=== PATIENT | male | born 1940 | race Caucasian/White ===

== ENCOUNTER → 2017-08-30 | Outpatient (CLI) | payer OTHER, MEDICARE ==
[~2017-08-30] VITALS: Ht 172.7 cm; Wt 127.0 kg
[~2017-08-30] MED LIST: CHILDREN'S ASPI81 M1 PO; DIOVAN160 MG PO; LIPITOR 20 MG T20 M1 PO; VITAMIN D35000 UNIT PO
--- NOTE | ~2017-08-30 | S ---
[facility] [place] [address] SURGICAL PATH RPT PROCEDURE Name: NELIDA MARROQUIN Room #: REG [facility].#: [id number] Admission: 08/30/17 Date of : 36 Discharge: Report #: [id number] Path Case #: [id number] PATHOLOGY REPORT COLLECTION DATE: 08/30/2017 RECEIVED DATE: 08/30/2017 SUBMITTING PHYS: Dr. Cortez Sesay OTHER PHYS: Dr. Edy Dinh SPECIMEN(S) RECEIVED: A.Polyp @ cecum B.Polyp @ hepatic flexure x2 * * * * * * * * * * * * FINAL DIAGNOSIS: A. "Polyp at cecum", biopsy: - Tubular adenoma; no high-grade dysplasia. B. "Polyp at hepatic flexure x2", biopsy: - Tubular adenoma; no high-grade dysplasia. - Hyperplastic polyp. (CLW:israel; 08/31/2017) PATHOLOGIST: Bobbi Noguera M.D. REPORT ELECTRONICALLY SIGNED BY: Bobbi Noguera M.D. DATE/TIME: 08/31/2017 17:27 * * * * * * * * * * * * GROSS PATHOLOGY: A. Received in formalin labeled "Nelida Marroquin, polyp at cecum," is a segment of lorenzana soft tissue measuring 0.5 x 0.2 x 0.1 cm in maximum dimension. The specimen is submitted entirely in cassette A1. B. Received in formalin labeled, "Nelida Marroquin, polyp at hepatic flexure 2," are 3 fragments of lorenzana soft tissue measuring between 0.2 x 0.1 x 0.1 cm and 0.4 x 0.3 x 0.2 cm. They are entirely submitted in cassette B1. (SDY; 08/30/2017) CLINICAL HISTORY: History polyps Polyps, diverticulosis INITIAL CPT CODE(S): A; 86581 B; 90686 Professional services performed by [facility] at [facility] [address] [place] [address] SURGICAL PATH RPT PROCEDURE Name: NELIDA MARROQUIN Room #: [facility].#: [id number] Admission: 08/30/17 Date of : 36 Discharge: Report #: [id number] Path Case #: [id number] , [place] [address] Technical services performed by [facility] at [address] [place] [address], [facility] [address] [address]. [facility] [address] [place] [address] PHONE: [phone] DIRECTOR: Ever Fang M.D. * * * END OF REPORT * * *
--- NOTE | ~2017-08-30 | P ---
[facility] [place] [address] PROCEDURE REPORT Name: NELIDA PARIKH Room #: REG [facility]#: [id number] Admission: 08/30/17 Attend Phys: Cortez Sesay MD Discharge: Date of : 36 Report #: [id number] THIS REPORT FOR: //name// CC: Cortez Dinh MD OUTPATIENT COLONOSCOPY REPORT BRIEF HISTORY: The patient is a 76-year-old man with a history of colon polyp. Last colon exam was 5 years ago. PREOPERATIVE DIAGNOSES: High risk screening colonoscopy, history of colon polyp. POSTOPERATIVE DIAGNOSES: 1. Three colon polyps. 2. Severe diverticulosis coli, right and left colon. MEDICATIONS: Deep sedation with propofol per anesthesia. SPECIMENS: 1. Cecal polyp. 2. Polyps x 2, hepatic flexure. ESTIMATED BLOOD LOSS: 3 mL. PROCEDURE: Colonoscopy to cecum and terminal ileum with biopsy. FINDINGS: Prior to propofol sedation, procedure of colonoscopy discussed with the patient as well as potential risks and its complications. He indicates he understands and desires to proceed. DESCRIPTION OF PROCEDURE: With the patient in left lateral decubitus position, digital examination was completed, which revealed no abnormalities. Subsequently, the [employer] video colonoscope was introduced in the rectum, advanced under direct vision to the cecum. Done with minimal difficulty. The cecum was identified by the ileocecal valve and the appendiceal orifice. I was able to visualize the distal segment of terminal ileum. Normal villous pattern was seen. At that point, the scope was slowly withdrawn and careful circumferential views were obtained. Upon slow withdrawal of the scope, the prep was noted to be good. Mucosa within normal limits, normal vascular pattern, normal light reflex. As we withdrew the scope, he had normal mucosa throughout. However, in the cecum, a 4-5 mm fairly flat polyp was seen and removed with biopsy forceps. The scope was further withdrawn at the hepatic flexure. Two diminutive polyps were seen and removed by biopsy. Scope was further withdrawn and no additional neoplastic lesions were seen. However, it is noteworthy that the patient was [facility] [address] [place] [address] PROCEDURE REPORT Name: NELIDA PARIKH Room #: REG [facility]#: [id number] Admission: 08/30/17 Attend Phys: Cortez Sesay MD Discharge: Date of : 36 Report #: [id number] noted to have extensive diverticular disease involving the right colon and left colon. There was no evidence of obstruction. There was some fullness of the colonic folds consistent with diverticular disease, but no obstructions or strictures. Scope was withdrawn through the remainder of the colon, mucosa was normal with diverticular disease, but no other abnormalities were identified. The scope was withdrawn in the rectum. Upon retroflexion, no abnormalities were seen. The scope was withdrawn and the patient tolerated the procedure well. CONDITION OF THE PATIENT UPON DISCHARGE: Following procedure, the patient was drowsy, arousable and conversant. He will be discharged to home when fully ambulatory. INSTRUCTIONS TO THE PATIENT AND FAMILY AT THE TIME OF DISCHARGE: We will follow up on the path. Suggest high fiber diet and even MiraLax as needed for his constipation. If all 3 polyps are adenomas, he should return in 3 years. If only 1 or 2 adenomas, in 5 years. If none are adenomas, then further routine screening colonoscopy would likely be of minimal benefit. He will return to the care of Dr. Edy Dinh and return to see me as needed. Withdrawal time from the cecum was 16 minutes 52 seconds. Last colonoscopy was 5 years ago. By: [id number] Cortez Sesay MD /nt
== END | disposition home or self-care (01) ==
LOC: GI 08:48
DX: Z09 Encounter for follow-up examination after completed treatment for conditions other than malignant neoplasm (principal); D12.0 Benign neoplasm of cecum; D12.3 Benign neoplasm of transverse colon; K63.5 Polyp of colon; K57.30 Diverticulosis of large intestine without perforation or abscess without bleeding; I10 Essential (primary) hypertension; E78.00 Pure hypercholesterolemia, unspecified; G47.33 Obstructive sleep apnea (adult) (pediatric); Z85.828 Personal history of other malignant neoplasm of skin; Z86.010 Personal history of colon polyps; Z87.891 Personal history of nicotine dependence; Z98.890 Other specified postprocedural states; Z79.82 Long term (current) use of aspirin; Z79.899 Other long term (current) drug therapy
CPT/HCPCS: 62110; 62900